=== PATIENT | male | born 1970 | race Caucasian/White ===

== ENCOUNTER 2017-09-11 21:45 | Emergency (ER) | payer MEDICARE, OTHER ==
[~2017-09-11] VITALS: Ht 182.9 cm; Wt 66.0 kg
[~2017-09-11 21:45] MED LIST: HYDR-3533 PO; PROZ20CA11 PO
[2017-09-11 21:49] VITALS: BP 103/62; PULSE 130; RESP 18; TEMP 100.3; O2SAT 91
[2017-09-11 23:28] VITALS: O2SAT 97
[2017-09-11] MEDS ORDERED: guaiFENesin/CODEINE SYRUP 200 MG/20 MG/10 ML CUP PO ONE (23:30)
[2017-09-11] MEDS ORDERED: KETOROLAC TROMETHAMINE 30 MG/ML (IVP) VIAL IV PUSH ONE (23:30)
[2017-09-11] MEDS ORDERED: RESP: ALBUTEROL 2.5 MG/IPRATROPIUM 0.5 MG NEB (SCH) NEB ONE (23:30)
[2017-09-11] MEDS ORDERED: OSELTAMIVIR PHOSPHATE 75 MG CAP PO ONE (23:30)
[2017-09-11] MEDS ORDERED: SODIUM CHLOR 0.9% 1000 ML INJ 1,000 ML IV ONE (23:30)
[2017-09-11 23:35] VITALS: O2SAT 98
[2017-09-12 00:03] VITALS: BP 104/62; PULSE 108; RESP 20; O2SAT 94
--- NOTE | 2017-09-12 00:43 | RADRPT ---
EXAM DATE/TIME: 09/12/2017 00:13 [place] COMPARISON: CHEST PA & LAT, March 18, 2014, 14:16. INDICATIONS : Wheezing, congestion since thursday. MEDICAL HISTORY : Asthma. SURGICAL HISTORY : None. ENCOUNTER: Initial ACUITY: 4 - 6 days PAIN SCORE: 0/10 LOCATION: Bilateral chest FINDINGS: The cardiac silhouette is normal in transverse diameter. There are chronic fibrotic changes bilateral ly. There is no evidence of pneumonia. There is question of a nodule involving the left midlung yanique uring [address] scan is recommended for further evaluation if clinically indicated. CONCLUSION: 1. Chronic fibrotic changes bilaterally unchanged from the prior study. No acute pulmonary disease. 2. Possible nodule left base CT scan is recommended for further evaluation if clinically indicated. Deandre Molina MD on September 12, 2017 at 0:40 Board Certified Radiologist. This report was verified electronically.
[2017-09-12 00:56] VITALS: BP 107/67; PULSE 98; RESP 18
[2017-09-12] MEDS ORDERED: OSEL75 PO (02:11)
[2017-09-12] MEDS ORDERED: LEVA750T9 PO (02:11)
[2017-09-12] MEDS ORDERED: GUAISYP4 PO (02:13)
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
== END 2017-09-12 02:43 | disposition home or self-care (01) ==
LOC: NEPE 21:45
DX: J11.1 Influenza due to unidentified influenza virus with other respiratory manifestations (principal); R51 Headache; J45.909 Unspecified asthma, uncomplicated; F41.9 Anxiety disorder, unspecified; F32.9 Major depressive disorder, single episode, unspecified; K21.9 Gastro-esophageal reflux disease without esophagitis
CPT/HCPCS: 71020; 94664; 96374; 99284; J1885; J7030